=== PATIENT | female | born 1945 | race Asian ===

== ENCOUNTER 2017-05-01 13:13 | Emergency (ER) | payer OTHER ==
[~2017-05-01] VITALS: Ht 139.7 cm; Wt 49.8 kg
[2017-05-01 13:40] VITALS: BP 152/77
[2017-05-01] MEDS ORDERED: FAMOTIDINE 20 MG TABLET ONE (14:22)
[2017-05-01] MEDS ORDERED: FAMOTIDINE 20 MG TABLET PO ONE (14:30)
[2017-05-01] MEDS ORDERED: [UNRECOGNIZED DRUG - OTHER] PO (14:40)
[2017-05-01] MEDS ORDERED: SITA1TAB PO (14:40)
[2017-05-01] MEDS ORDERED: ASPI-770 PO (14:40)
== END 2017-05-01 14:50 | disposition home or self-care (01) ==
LOC: ED 14:40
DX: L50.8 Other urticaria (principal); I10 Essential (primary) hypertension; E11.9 Type 2 diabetes mellitus without complications
CPT/HCPCS: 99284; J7512; Q0177